=== PATIENT | female | born 1960 | race Caucasian/White ===

== ENCOUNTER 2016-06-24 09:30 | Outpatient (CLI) | payer OTHER ==
[2016-06-24 09:43] LABS: BASOPHILS % 0.4 (0.0-1.5); EOSINOPHILS % 1.3 % (0.0-6.8); MEAN CORPUSCULAR HEMOGLOBIN 28.9 pg (28.0-34.0); MONOCYTES % 3.4 % (0.0-11.0); NEUTROPHILS # 4.4 # k/uL (1.4-7.7)
[2016-06-24 10:24] LABS: eGFR (African) > 60; eGFR (Non-African) > 60
[2016-06-24 14:21] LABS: LIPASE 53 U/L (13-60)
--- NOTE | 2016-06-24 14:24 | Diagnostic Imaging Report ---
TERI MURRAY [facility] [id number] [facility].[address] [id number] Report Submission Date: Jun 24, 2016 10:47:11 AM CDT Patient Study Name: YUSUF DUARTE Date: Jun 24, 2016 9:43:16 AM CDT Modality Type: CR Gender: F Description: ABDOMEN : 64 Institution: [facility] Physician: TERI MURRAY Obstructive series - two views Clinical history: Abdominal pain and tenderness. Findings: Examination of the abdomen in supine and upright views demonstrates gas and stool throughout the colon. There are degenerative changes in the visualized thoracolumbar spine. Lung bases are clear. There are no unusual intra-abdominal calcifications. Visualized visceral silhouettes are within normal limits. Bilateral total hip replacements are incidentally noted. There is no evidence of obstruction or free air. Impression: 1. Thoracolumbar spondylosis. 2. Otherwise negative study. Electronically signed on Jun 24, 2016 10:47:11 AM CDT by: Russel AVALOS
== END 2016-06-24 09:32 ==
LOC: LAB 09:30
PROVIDERS: ATTEND Physician Assistant
DX: R10.84 Generalized abdominal pain (principal)
CPT/HCPCS: 36415; 74020; 80053; 83690; 85025

== ENCOUNTER 2017-11-13 11:30 | Outpatient (CLI) | payer OTHER | END 2017-11-13 11:35 | LOC: LABRHC 11:30 | PROVIDERS: ATTEND Physician Assistant | DX: Z12.4 Encounter for screening for malignant neoplasm of cervix (principal) | CPT/HCPCS: 88148; G0143 ==